=== PATIENT | female | born 1995 | race Hispanic/Latino ===

== ENCOUNTER 2018-04-30 13:49 | Emergency (ER) | payer OTHER ==
[~2018-04-30] VITALS: Ht 154.9 cm; Wt 68.2 kg
--- NOTE | 2018-04-30 15:30 | REP ---
CT Head without contrast HISTORY: Head injury COMPARISON: None There is no intraparenchymal hemorrhage, acute infarct, mass or midline shift. The ventricular system is normal in appearance. There is no extra cerebral collection. There is no fracture. The visualized sinuses are clear. IMPRESSION: There is no intracranial lesion. Electronically Signed by Tarsa Nath MD 04/30/2018 03:22 P
[2018-04-30 15:57] VITALS: BP 99/56
== END 2018-04-30 16:01 | disposition home or self-care (01) ==
LOC: M ED 13:49
DX: S09.90XA Unspecified injury of head, initial encounter (principal); W19.XXXA Unspecified fall, initial encounter; Y92.009 Unspecified place in unspecified non-institutional (private) residence as the place of occurrence of the external cause

== ENCOUNTER 2018-07-12 15:05 | Emergency (ER) | payer OTHER ==
[~2018-07-12] VITALS: Ht 154.9 cm; Wt 72.8 kg
[2018-07-12] MEDS ORDERED: MULTTAB20 PO (15:10)
[2018-07-12 17:57] LABS: BASO % 0.3 % (0.0-1.0); EOS % 0.4 % (0.0-3.0); HEMATOCRIT 39.1 % (36.0-47.0); HEMOGLOBIN 13.3 g/dl (12.0-15.5); LYMPH # 3.5 10^3/uL (1.5-6.5); LYMPH % 31.9 % (24.0-44.0); MEAN CORPUSCULAR HEMOGLOBIN 28.7 pg (27.0-33.0); MEAN CORPUSCULAR VOLUME 84.3 fl (80.0-96.0); MONO # 0.4 10^3/uL (0.0-0.8); MONO % 3.4 % (0.0-5.0); NEUTROPHILS % 63.5 % (36.0-66.0); PLATELET COUNT, AUTOMATED 268 10^3/uL (150-450); RED BLOOD COUNT 4.64 10^6/uL (4.00-5.40)
--- NOTE | 2018-07-12 19:55 | REPVR ---
EXAM: US , Transvaginal EXAM DATE/TIME: 07/12/2018 6:22 PM CLINICAL HISTORY: 23 years old, female; Signs and symptoms; Lmp or gestational age (in weeks): 7w 2d; Antepartum complications; Bleeding; ; Additional info: Vaginal bleeding TECHNIQUE: Imaging protocol: Real-time transvaginal obstetrical ultrasound of the maternal pelvis and a first trimester with image documentation. Transvaginal imaging was used for better evaluation of the fetus and adnexa. COMPARISON: No relevant prior studies available. FINDINGS: GESTATION: Gestation: There is a single intrauterine gestational sac. There is a yolk sac within inner diameter of 0.3 cm. Heart rate: Cardiac activity noted at a rate of 125 beats per minute. BIOMETRY: [place]-Rump length: There is a pole with a crown-rump length measurement of 0.9 cm for a menstrual age of 7 weeks and 0 days. MATERNAL: Cervix: Cervix was closed at the time of the examination. Right adnexa: The right ovary measures 2.8 x 2.5 x 2.2 cm and contains a corpus luteum cyst measuring 1.9 cm in greatest diameter. Blood flow demonstrated within the right ovary on color Doppler examination. Arterial and venous blood flow demonstrated in the right ovary on color Doppler examination. A trace amount of free fluid surrounds the right ovary. Left adnexa: An echogenic shadowing focus suggesting calcifications noted in the left ovary measuring 4 mm. The left ovary measures 1.4 x 2.1 x 1.7 cm. Arterial blood flow demonstrated in the left ovary on color Doppler examination. IMPRESSION: Single live intrauterine with an estimated menstrual age of 7 weeks and 0 days. Expected date of delivery 02/28/2019. Electronically signed by: Clary Blair On 07/12/2018 19:55:23 PM
[2018-07-12 20:28] VITALS: BP 108/63
[2018-07-12] MEDS ORDERED: KEFL500C17 PO (20:29)
[2018-07-12] MEDS ORDERED: CEPHALEXIN 500 MG CAP PO ONE (20:45)
== END 2018-07-12 20:52 | disposition home or self-care (01) ==
LOC: M ED 15:05
DX: O20.9 Hemorrhage in early pregnancy, unspecified (principal); O23.41 Unspecified infection of urinary tract in pregnancy, first trimester; O26.891 Other specified pregnancy related conditions, first trimester; M06.9 Rheumatoid arthritis, unspecified; Z3A.01 Less than 8 weeks gestation of pregnancy

== ENCOUNTER 2018-10-03 15:44 | Emergency (ER) | payer OTHER ==
[~2018-10-03] VITALS: Ht 154.9 cm; Wt 68.6 kg
[~2018-10-03 15:44] MED LIST: KEFL500C17 PO; MULTTAB20 PO
[2018-10-03 16:35] LABS: BASO % 0.3 % (0.0-1.0); EOS # 0.1 10^3/uL (0.0-0.50); EOS % 0.5 % (0.0-3.0); HEMATOCRIT 35.1 % (36.0-47.0); HEMOGLOBIN 12.1 g/dl (12.0-15.5); LYMPH # 2.9 10^3/uL (1.5-6.5); LYMPH % 27.3 % (24.0-44.0); MEAN CORPUSCULAR HEMOGLOBIN 28.4 pg (27.0-33.0); MEAN CORPUSCULAR HGB CONC 34.5 g/dl (32.0-36.5); MEAN CORPUSCULAR VOLUME 82.4 fl (80.0-96.0); MONO # 0.6 10^3/uL (0.0-0.8); MONO % 5.6 % (0.0-5.0); NEUTROPHILS # 6.9 10^3/uL (1.8-7.7); NEUTROPHILS % 65.9 % (36.0-66.0); PLATELET COUNT, AUTOMATED 222 10^3/uL (150-450); RED BLOOD COUNT 4.26 10^6/uL (4.00-5.40); WHITE BLOOD COUNT 10.5 10^3/uL (4.0-10.0)
[2018-10-03 16:59] LABS: BLOOD UREA NITROGEN 8 MG/DL (7-18); CALCIUM LEVEL 9.1 MG/DL (8.5-10.1); CARBON DIOXIDE LEVEL 25 MEQ/L (21-32); CHLORIDE LEVEL 106 MEQ/L (98-107); CREATININE FOR GFR 0.51 MG/DL (0.55-1.30); GLOMERULAR FILTRATION RATE > 60.0 (>60); GLUCOSE, FASTING 83 MG/DL (70-100); POTASSIUM SERUM 3.7 MEQ/L (3.5-5.1); SODIUM LEVEL 139 MEQ/L (136-145)
--- NOTE | 2018-10-03 19:29 | REPVR ---
EXAM: US After First Trimester, Transabdominal EXAM DATE/TIME: 10/03/2018 6:04 PM CLINICAL HISTORY: 23 years old, female; complicated by abdominal or pelvic pain; Lower; Second trimester; Gestational age or lmp: 19w1d; ; Additional info: Low abdominal pain, 19wks TECHNIQUE: Imaging protocol: Real-time transabdominal obstetrical ultrasound of the maternal pelvis and a second or third trimester with image documentation. COMPARISON: Correlation with report from prior ultrasound 07/12/2018. FINDINGS: GESTATION: Gestation: There is a single intrauterine gestation. Heart rate: heart rate is 155 bpm. Presentation: presentation is cephalic. Placenta: The placenta is anterior. Amniotic fluid: The amniotic fluid appears subjectively adequate. Head, face, and neck: Facial profile views are suboptimal. Heart: A four-chamber heart was visualized. The right ventricular outflow tract view is suboptimal. The left ventricular outflow tract was visualized. Abdomen: The stomach was visualized. The kidneys were suboptimally visualized. The bladder was visualized. Umbilical cord and insertion: A three-vessel cord was seen. The cord insertion was visualized. Spine: The spine was suboptimally visualized. Extremities: The extremities were visualized. BIOMETRY: Estimated gestational age: The ultrasound gestational age is 18 weeks 2 days. Estimated due date: The MARIO is 03/04/2019. The MARIO according to the prior study was 02/28/2019. Interval growth is concordant. Estimated weight: The estimated weight is 227 g. 13th percentile. Biparietal diameter: BPD is 4.23 cm corresponding to gestational age of 18 weeks 6 days. 41st percentile. Head circumference: HC is 15.59 cm corresponding to a gestational age of 18 weeks 4 days. 31st percentile. Abdominal circumference: AC is 12.32 cm corresponding to a gestational age of 18 weeks 0 days. 18th percentile. Femur length: FL is 2.71 cm corresponding to a gestational age of 18 weeks 2 days. 28th percentile. MATERNAL: Uterus: The appearance of an echogenic linear band within the amniotic fluid between the placenta and the uterine wall on the left, could represent an adhesion/scar or amniotic band. Followup is recommended. No discrete band identified between the fetus and the uterine wall. Cervix: The cervix is long and closed measuring 3.6 cm. IMPRESSION: 1. The appearance of an echogenic linear band within the amniotic fluid between the placenta and the uterine wall on the left, could represent an adhesion/scar or amniotic band. Followup is recommended. 2. Single live intrauterine gestation, as detailed above. Electronically signed by: Radha Sotomayor On 10/03/2018 19:29:14 PM
[2018-10-03] MEDS ORDERED: MACR100C43 PO (20:11)
[2018-10-03 20:20] VITALS: BP 105/63
--- NOTE | 2018-10-08 21:11 | ED PDOC ---
Post-Departure Follow-Up ft drum ob and ft drum fp faxedformal report of ob us for fu Obed Murillo MD Oct 08, 2018 21:11
== END 2018-10-03 20:22 | disposition home or self-care (01) ==
LOC: M ED 15:44
DX: O23.42 Unspecified infection of urinary tract in pregnancy, second trimester (principal); O26.892 Other specified pregnancy related conditions, second trimester; Z87.448 Personal history of other diseases of urinary system; Z3A.19 19 weeks gestation of pregnancy; Z79.899 Other long term (current) drug therapy

== ENCOUNTER 2018-12-29 21:10 | Outpatient (CLI) | payer OTHER ==
[~2018-12-29] VITALS: Ht 154.9 cm; Wt 74.3 kg
[~2018-12-29 21:10] MED LIST changes: +MACR100C43 PO
[2018-12-29] MEDS ORDERED: MAPA500T2 PO (21:43)
[2018-12-29 21:47] VITALS: BP 119/67
[2018-12-29 22:33] LABS: APPEARANCE, URINE CLEAR (CLEAR); BACTERIA, URINE AUTO 1+ (NEGATIVE); BILIRUBIN, URINE AUTO NEGATIVE (NEGATIVE); BLOOD, URINE BLOOD NEGATIVE (NEGATIVE); COLOR, URINE YELLOW (YELLOW); GLUCOSE, URINE (UA) AUTO NEGATIVE (NEGATIVE); KETONE, URINE AUTO NEGATIVE (NEGATIVE); LEUKOCYTE ESTERASE, URINE AUTO 3+ (NEGATIVE); MUCUS, URINE SMALL (NEGATIVE); NITRITE, URINE AUTO NEGATIVE (NEGATIVE); PROTEIN, URINE AUTO NEGATIVE (NEGATIVE); RBC, URINE AUTO 13 /HPF (0-3); SPECIFIC GRAVITY URINE AUTO 1.011 (1.002-1.035); SQUAMOUS EPITHELIAL CELL UR AU 4 /HPF (0-6); UROBILINOGEN, URINE AUTO 0.2 mg/dL (0.0-2.0); WBC, URINE AUTO 8 /HPF (0-3)
[2018-12-29] MEDS ORDERED: ACETAMINOPHEN 500 MG TAB PO ONE (22:45)
[2018-12-29 23:12] LABS: BASO % 0.3 % (0.0-1.0); EOS # 0.1 10^3/uL (0.0-0.5); EOS % 0.7 % (0.0-3.0); HEMATOCRIT 35.7 % (36.0-47.0); LYMPH % 29.8 % (24.0-44.0); MEAN CORPUSCULAR HEMOGLOBIN 29.1 pg (27.0-33.0); MEAN CORPUSCULAR HGB CONC 33.6 g/dl (32.0-36.5); MEAN CORPUSCULAR VOLUME 86.7 fl (80.0-96.0); MONO # 0.7 10^3/uL (0.0-0.8); MONO % 7.1 % (0.0-5.0); NEUTROPHILS # 6.2 10^3/uL (1.5-8.5); NEUTROPHILS % 61.6 % (36.0-66.0); PLATELET COUNT, AUTOMATED 194 10^3/uL (150-450); RED BLOOD COUNT 4.12 10^6/uL (4.00-5.40); WHITE BLOOD COUNT 10.1 10^3/uL (4.0-10.0)
[2018-12-29 23:50] LABS: ALBUMIN 2.8 GM/DL (3.2-5.2); ALT/SGPT 20 U/L (12-78); BILIRUBIN,TOTAL 0.2 MG/DL (0.2-1.0); BLOOD UREA NITROGEN 8 MG/DL (7-18); CALCIUM LEVEL 8.7 MG/DL (8.5-10.1); CARBON DIOXIDE LEVEL 25 MEQ/L (21-32); CHLORIDE LEVEL 107 MEQ/L (98-107); GLOMERULAR FILTRATION RATE > 60.0 (>60); GLUCOSE, FASTING 77 MG/DL (70-100); LIPASE 115 U/L (73-393); PHOSPHORUS LEVEL 4.8 MG/DL (2.5-4.9); POTASSIUM SERUM 3.7 MEQ/L (3.5-5.1); SODIUM LEVEL 140 MEQ/L (136-145); TOTAL PROTEIN 6.2 GM/DL (6.4-8.2)
--- NOTE | 2018-12-30 00:03 | IPNPDOC ---
"Text Note Date of Service The patient was seen on 12/29/18. NOTE OB Considerations: BMI 30 VZV non immune 23y/o G1 @ 31+4 wks by LMP c/w 1st trimester US (MARIO [id number]) presents to triage for complaint of pain. Patient reports that, around noon today she had acute onset of 6/10 sharp stabbing pain while doing housework. She reports that the pain is periumbilical and radiates around her right side and back, also radiating downward towards her pelvis. She reports that she has decreased appetite, but no nausea/vomiting. She denies fevers/chills/CP/SOB/abnormal discharge. She does note some pain with urination. She denies contractions, LOF, vaginal bleeding. Pain was not improved with 325mg of Tylenol. Patient reports pain has been constant since its onset and is not intermittent nature. Patient does admit to constipation. She reports one hard bowel movement today. VS: Reviewed. Afebrile, normotensive, non tachycardic. Gen: Alert and oriented, no acute distress Resp: CTAB, no crackles, wheezes or rhonchi. Non labored breathing. CV: RRR, no murmurs, rubs or gallops Abd: +BS, soft, non distended, gravid. Mild tenderness to palpation along umbilicus and entire right half of abdomen. Patient reporting tenderness with palpation along right paravertebral muscles on the right half of lower back. Ext: No edema, erythema or calf tenderness SSE: Closed, thick cervical os. Thick white curd-like discharge present. Microscopy: Pseudohyphae and budding yeast present. No clue cells or trichomonas. NST: 140, mod leo, +accels, no decels TCO: quiet Labs: 10.1>12.0/35.7<194 No left shift 140/3.7|107/25|8/0.50 AST 12 ALT 20 Lipase 115 UA: 3+ leuk esterase, 13WBC A/p: 23y/o G1 @ 31+4 wks by LMP c/w 1T US (MARIO [id number]) presents to triage with abdominal pain radiating towards pelvis and around left side which began during housework today. -UA concerning for possible UTI, given pain with urination will initiate Macrobid 100mg BID x 7 days and followup culture -Yeast infection: will prescribe Clotrimazole cream -Constipation: Recommend over the counter Miralax -Suspect abdominal pain secondary to MSK pain. Throughout the triage course, patient began to ask for jon crackers and reported improved appetite. Given afebrile, no elevations in WBC and appetite, do not suspect appendicitis. Low suspicion for kidney stone given constant nature of pain. Do not suspect pyelonephritis given afebrile, pain with paraspinal palpation. -Patient was discharged in stable condition with strong return precautions should her symptoms worsen or she develop a fever. labor and return precautions given. Lili Crooks MD VS,Blake, I+O VS, Blake, I+O Laboratory Tests 12/29/18 23:06 Vital Signs Date Time Temp Pulse Resp B/P (MAP) Pulse Ox O2 Delivery O2 Flow Rate FiO2 12/29/18 21:47 98.0 80 18 119/67 (84) Radha Crooks MD Dec 30, 2018 00:03"
--- NOTE | 2018-12-30 00:21 | IPNPDOC ---
"Text Note Date of Service The patient was seen on 12/30/18. NOTE To whom it may concern: Freda Méndez was evaluated on Labor and Delivery on 29Dec2018 for abdominal pain. I recommend that she stay home from work on 30Dec2018 for r ecovery. Respectfully, Radha Crooks MD CPT||[facility] [employer] [facility] VS,Blake, I+O VS, Blake, I+O Laboratory Tests 12/29/18 23:06 Vital Signs Date Time Temp Pulse Resp B/P (MAP) Pulse Ox O2 Delivery O2 Flow Rate FiO2 12/29/18 21:47 98.0 80 18 119/67 (84) Radha Crooks MD Dec 30, 2018 00:21"
== END 2018-12-30 00:35 | disposition home or self-care (01) ==
LOC: M LDO 21:10
PROVIDERS: ATTEND Obstetrics & Gynecology
DX: O26.893 Other specified pregnancy related conditions, third trimester (principal); R10.30 Lower abdominal pain, unspecified; O23.599 Infection of other part of genital tract in pregnancy, unspecified trimester; B37.3 Candidiasis of vulva and vagina; Z3A.31 31 weeks gestation of pregnancy
CPT/HCPCS: 36415; 59025; 80053; 81001; 83690; 83735; 84100; 85025; 87086; G0378; G0463

== ENCOUNTER 2019-01-30 20:11 | Outpatient (CLI) | payer OTHER ==
[~2019-01-30] VITALS: Ht 152.4 cm; Wt 76.5 kg
[~2019-01-30 20:11] MED LIST changes: +MAPA500T2 PO
[2019-01-30 20:30] VITALS: BP 113/59
--- NOTE | 2019-01-30 21:05 | IPNPDOC ---
Text Note Date of Service The patient was seen on 01/30/19. NOTE 23 yo at 36+1 weeks gestation presented to L&D with the complaint of constant pelvic pressure and contractions that have been worsening over the last several hours. She denies any vaginal bleeding or leakage of fluid. She endorses excellent movement. is uncomplicated. Chaperoned by L&D RN Vitals - VSS, normotensive, non tachycardic, afebrile General - AAXO3, laying in bed, NAD Abdomen - Gravid uterus, no fundal tenderness Cervix - closed/thick/high, posterior FHR tracing - Cat I with moderate variability, +accels, no decels. No ctx on toco. Freda is not in labor. status is reassuring. Discharged home with return precautions. Delilah Harmon DO VS,Blake, I+O VS, Blake, I+O Vital Signs Date Time Temp Pulse Resp B/P (MAP) Pulse Ox O2 Delivery O2 Flow Rate FiO2 01/30/19 20:30 97.0 82 113/59 (77) DELILAH HARMON DO Jan 30, 2019 21:05
== END 2019-01-30 21:00 | disposition home or self-care (01) ==
LOC: M LDO 20:11
PROVIDERS: ATTEND Obstetrics & Gynecology
DX: O26.893 Other specified pregnancy related conditions, third trimester (principal); R10.30 Lower abdominal pain, unspecified; O47.03 False labor before 37 completed weeks of gestation, third trimester; Z3A.36 36 weeks gestation of pregnancy
CPT/HCPCS: 59025; G0378; G0463

== ENCOUNTER 2019-02-26 02:16 | Outpatient (CLI) | payer OTHER ==
[~2019-02-26] VITALS: Ht 152.4 cm; Wt 80.4 kg
--- NOTE | 2019-02-26 03:12 | IPNPDOC ---
Text Note Date of Service The patient was seen on 02/26/19. NOTE patient is a 23 yo G1 @ 40wks gestation presents with regular painful contractions x 4hrs. denies LOF/VB. +FM vitals: normal nad abd: cephalic by josé miguel fht: 150/mod leo/pos accel/no decel toco: ctx q 2mins ce: closed/high (per nursing check) a/p patient not in labor. discussed s/s to return. f/u with regularly scheduled appointments. AURELIA BAKER DO Feb 26, 2019 03:12
== END 2019-02-26 03:30 | disposition home or self-care (01) ==
LOC: M LDO 02:16
PROVIDERS: ATTEND Obstetrics & Gynecology
DX: O47.1 False labor at or after 37 completed weeks of gestation (principal); Z3A.40 40 weeks gestation of pregnancy
CPT/HCPCS: 59025; 81001; 87086; G0378; G0463

== ENCOUNTER 2019-02-28 07:02 | Outpatient (CLI) | payer OTHER ==
[~2019-02-28] VITALS: Ht 154.9 cm; Wt 78.9 kg
[2019-02-28 07:20] VITALS: BP 127/72
--- NOTE | 2019-02-28 10:58 | IPNPDOC ---
Text Note Date of Service The patient was seen on 02/28/19. NOTE Triage Note Freda is a 23yo with SIUP at 40w2d presenting with CC of painful regular ctx that started last night. She didn't sleep much secondary to ctx. No vaginal bleeding. No gush of fluid. Feels good movement. Vitals wnl, afebrile General: WDWN, resting in bed, breathing with ctx Abdomen: soft, gravid, NTTP, ctx palpate mild Cat I FHRT with bl 130's, +accels, -decels, mod leo [place]: ctx q2-4min but then over time with hydration spaced out to q9-15min SCE (RN as demi chef): 3/80/-2, unchanged over approx 3hr. Cephalic by SCE. Assessment: Freda is a 23yo with SIUP at 40w2d with NO e/o active labor based on unchanged cervical exam and spacing of ctx with hydration. Vitals wnl, benign exam. SCE 3/80/-2. Reassuring status. Normotensive. Plan: -pt had OB appt at 1500 today, she can call to cancel that appt and needs to be seen at 41wk if no labor prior (though I feel she will return in labor in the next day or 2). -note given for her to have quarters 48hr so he can remain with her -ok to take a dose of oral benadryl for sleep as desired -encouraged warm bath/shower -discussed return precautions at length -safe for discharge home MD JASVIR Luis Fishbone, I+O Blake TAY I+O Vital Signs Date Time Temp Pulse Resp B/P (MAP) Pulse Ox O2 Delivery O2 Flow Rate FiO2 02/28/19 07:20 85 20 127/72 (90) Room Air Amy Gage MD Feb 28, 2019 10:58
== END 2019-02-28 10:48 | disposition home or self-care (01) ==
LOC: M LDO 07:02
PROVIDERS: ATTEND Obstetrics & Gynecology
DX: O47.1 False labor at or after 37 completed weeks of gestation (principal); Z3A.40 40 weeks gestation of pregnancy
CPT/HCPCS: 59025; G0378; G0463

== ENCOUNTER 2019-02-28 18:47 | Inpatient (IN) | payer OTHER ==
[~2019-02-28] VITALS: Ht 154.9 cm; Wt 82.0 kg
[2019-02-28 18:58] VITALS: BP 112/67
[2019-02-28] MEDS ORDERED: LR 1,000 ML IV SCH (19:56)
[2019-02-28] MEDS ORDERED: LACTATED RINGER'S 1000 ML IV STA (19:56)
[2019-02-28] MEDS ORDERED: BUTORPHANOL 2 MG/ML INJ (J0595) IV PRN (20:00)
--- NOTE | 2019-02-28 20:13 | HPEPDOC ---
Obstetrical History & Physical General Date of Admission Feb 28, 2019 at 19:46 History of Present Illness Fread is a 23yo with SIUP at 40w2d by lmp c/w early u/s presenting for the 2nd time today for painful regular ctx. This morning she was 3/80/-2 and unchanged over 3hr so sent home. She presents again stating ctx are more painful and she has not been able to sleep all day or last night and she is tired and miserable. Feels movement. No vaginal bleeding. No gush of fluid. No fevers/chills. Chief Complaint: Contractions, term Information Provided By: Patient Care Care: Good Care Dating Final EDC: Feb 26, 2019 Final EDC by: LMP, 1st trimester (US) Antepartum Course Diagnos(e)s Starting BMI 30 (obesity), varicella non-immune Height (inches): 61 Pre- weight (lbs.): 155 Admission Weight (lbs.): 173 Change in Weight (lbs.): 18 Past Medical History Past Obstetrical History : Past Obstetrical History: [employer] History: No pertinent history Past Medical History Medical History Obesity BMI 30 Surgical History: Denies/None Family History Significant Family History: No pertinent family hx Social History Marital Status: Family situation: Spouse/partner home Psychosocial History: No pertinent psych hx * Smoker: non-smoker Alcohol: Denies Drugs: denies Imunizations Tdap status: current Influenza Status: current Allergies Coded Allergies: No Known Drug Allergies (Verified Allergy, Unknown, 07/12/18) Medications Scheduled No122/Iron/Folic Acid ( Multi Tablet) 1 Each Tablet, 1 TAB PO DAILY Miscellaneous Medications Acetaminophen (Mapap) 500 Mg Tablet, 325 MG PO Physical Examination Physical Examination GENERAL: Alert and oriented times three. ABDOMEN: Gravid and non-tender to touch. FETUS: Is vertex (VTX) by sterile vaginal examination (SVE) EXTREMITIES: No edema of BLE Vital Signs/I&O Vital Signs Date Time Temp Pulse Resp B/P (MAP) Pulse Ox O2 Delivery O2 Flow Rate FiO2 02/28/19 18:58 97.2 75 20 112/67 (82) Room Air Laboratory Data 24H LABS Laboratory Tests 2 02/28/19 19:51: Serology Scanned Report Hepatitis B Testing CBC/BMP 28wk H/H 13/38.9 Pertinent Laboratoy Data Blood Type: O+ RBC Antibody Screen: Negative HIV: Negative Hepatitis B: Negative Hepatitis C: Unknown Rapid Plasma Reagin: Nonreactive Rubella: Immune Varicella: Nonreactive Chlamydia/Gonorrhea: Negative Group B Streptococcus: Negative Glucose Tolerance Test: 99 Anatomy Ultrasound Ultrasound Date: Aug 22, 2018 Placenta Location: Anterior Normal Anatomy: Yes Placenta Previa: No Steroid Therapy Steroid Therapy: No Vaginal Examination Dilation: 5 cm Effacement: 80% Station: -2 Cervical Consistency: Soft Cervical Position: Middle Presentation: Cephalic presentation Assessment Heart Rate (FHR): 140 Variability: Moderate Accelerations: Positive Decelerations: None Tocometer Contractions: Yes Frequency: regular, every 3-7 min. Duration: greater than 60 seconds Strength: palpated as moderate Assessment/Plan Assessment Freda is a 23yo with SIUP at 40w2d by lmp c/w early u/s in labor with SCE 5/80/-2 though ctx currently q5-7min. Cat I FHRT. Vitals wnl. Cephalic by SCE. GBS negative. PMhx/ course significant for Obesity (starting BMI 30) and varicella non-immune Plan Admit and orient. Freezer Operator and consent. Diet: clear liquids Group B Streptococcus (GBS) negative Labs and intravenous (IV) per unit protocol Lactated Ringers (LR): Bolus 500 mL, then at 125 mL/hr Anticipate normal spontaneous delivery () Candidate for epidural as desired in active labor, stadol/phenergan in latent labor MD Merari Luis Katrina D MD Feb 28, 2019 20:13
[2019-02-28] MEDS ORDERED: PROMETHAZINE INJ 25 MG/ML VIAL (J2550) IV ONE (20:15)
[2019-02-28 20:25] LABS: HEMATOCRIT 41.7 % (36.0-47.0); HEMOGLOBIN 13.9 g/dl (12.0-15.5); MEAN CORPUSCULAR HEMOGLOBIN 28.5 pg (27.0-33.0); MEAN CORPUSCULAR HGB CONC 33.3 g/dl (32.0-36.5); MEAN CORPUSCULAR VOLUME 85.6 fl (80.0-96.0); PLATELET COUNT, AUTOMATED 220 10^3/uL (150-450); RED BLOOD COUNT 4.87 10^6/uL (4.00-5.40); WHITE BLOOD COUNT 18.8 10^3/uL (4.0-10.0)
[2019-02-28 20:43] VITALS: BP 106/55
[2019-02-28 21:43] VITALS: BP 106/58
[2019-02-28 22:43] VITALS: BP 104/60
[2019-02-28 23:43] VITALS: BP 105/61
[2019-03-01] VITALS (10 sets, daily range): BP systolic 108–123; BP diastolic 54–74
[2019-03-01] MEDS ORDERED: OXYTOCIN 30 UNITS IN 0.9% NaCl 500ML IV BAG (J2590) As Ordered ONE (03:09)
[2019-03-01] MEDS ORDERED: OXYTOCIN DRIP 30 UNITS in IV 1 EA IV SCH (03:58)
[2019-03-01] MEDS ORDERED: ACETAMINOPHEN TAB 650MG DOSE (2X325MG) PO PRN (04:00)
[2019-03-01] MEDS ORDERED: RHOGAM 300 MCG (1500 IU) INJ (J2790) IM SCH (04:00)
[2019-03-01] MEDS ORDERED: DIBUCAINE 1% OINTMENT 30GM TOP PRN (04:00)
[2019-03-01] MEDS ORDERED: MEASLES,MUMPS,RUBELLA VACCINE INJ (MMR-II) (90707) SC SCH (04:00)
[2019-03-01] MEDS ORDERED: LIDOCAINE 1% MDV 20ML VIAL INFIL ONE (04:00)
[2019-03-01] MEDS ORDERED: DOCUSATE SODIUM 100 MG CAP PO PRN (04:00)
--- NOTE | 2019-03-01 04:09 | DNPDOC ---
[facility] Delivery Note Delivery Note DATE OF DELIVERY: 03/01/2019 PREDELIVERY DIAGNOSIS: 40w3d gestation and labor. POST DELIVERY DIAGNOSIS: Delivered. PROCEDURE: Spontaneous vaginal delivery ASSISTANT AT SURGERY: Dr. Amy Gage MD ANESTHESIA: 1% lidocaine for repair ESTIMATED BLOOD LOSS: 200 mL. FINDINGS: 6 pound 5 ounce (2870g) female , Score 8/9 DELIVERY SUMMARY: Freda is a 23yo [id number] s/p uncomplicated at 40w3d after presenting in active labor, delivering at 0320 on 03/01/2019. She presented at 5cm, had SROM with clear fluid noted at the time, and progressed withOUT an epidural. She reached C/C/+2 and began pushing. 's head delivered OA, restituted FRED. Left anterior shoulder delivered followed by posterior shoulder and corpus. Meconium stained fluid was noted at that time. was vigorous, had spontaneous cry, placed on maternal chest, apgars 8/9, nose and mouth suctioned with bulb suction. Cord was clamped x2 and cut by FOB after approx 1-2min. went to warmer for further suctioning. With traction on the cord and uterine massage, placenta delivered spontaneously and intact with 3 vessel centrally inserted cord. More uterine massage was performed with fundus then firm at u-2cm. Inspection of perineum and vagina revealed a superficial right labial laceration and small 2mll which were reapproximated in routine fashion using 4-0 and 3-0 vicryl after injecting with 1% lidocaine with complete hemostasis noted and excellent reapproximation. All counts correct x2. Mom and infant were doing well when I left the room. MD Merari Luis Katrina D MD Mar 01, 2019 04:09
[2019-03-01] MEDS: ACETAMINOPHEN 500 MG TAB PO PRN (05:06)
[2019-03-01] MEDS: PRENATAL VITAMINS CHEWABLE TABLET PO SCH (09:52)
[2019-03-01] MEDS: IBUPROFEN 600 MG TAB PO PRN ×2 (12:06→18:39)
[2019-03-02 06:00] VITALS: BP 102/59
--- NOTE | 2019-03-02 07:52 | IPNPDOC ---
Progress Note Date of Service: Mar 02, 2019 Progress Note Freda is a 23 yo G1 now P1 who underwent an uncomplicated on 01Mar2019 after being admitted for active labor. No acute events yesterday. Freda is sleeping soundly in her room. I did not wake her up. Vitals - VSS, afebrile, normotensive, non tachycardic General - Sleeping soundly in bed. I did not awaken her. Voiding on own. No new labs. Freda appears to be doing well. Continue routine care today. Anticipate discharge home tomorrow if she continues to do well. Delilah Harmon DO VS, I&O, 24H, Fishbone Vital Signs/I&O Vital Signs Date Time Temp Pulse Resp B/P (MAP) Pulse Ox O2 Delivery O2 Flow Rate FiO2 03/02/19 06:00 97.7 98 16 102/59 (73) 02/28/19 20:38 Room Air DELILAH HARMON DO Mar 02, 2019 07:52
[2019-03-02] MEDS: IBUPROFEN 800 MG TAB PO PRN ×2 (09:13→16:26)
[2019-03-02] MEDS: PRENATAL VITAMINS CHEWABLE TABLET PO SCH (09:18)
[2019-03-02] MEDS: ACETAMINOPHEN 500 MG TAB PO PRN ×2 (15:37→21:36)
[2019-03-02 18:15] VITALS: BP 104/58
[2019-03-03 06:12] VITALS: BP 92/62
--- NOTE | 2019-03-03 08:23 | IPNPDOC ---
Progress Note Date of Service: Mar 03, 2019 Day#: 2 Progress Note SUBJECT: Ms. Ever Funk is a 23 1 now Para 1001 status post uncomplicated spontaneous vaginal delivery at 40+3 weeks' at approximately 0320 hours on 03/01/2019 of a female 6 pounds 5 ounces (2870 grams) with right labial laceration and small 2nd MLL, doing well day #2. She has been ambulating, voiding spontaneously without issue and tolerating regular diet. Breast feeding without issue. Reports lochia is WNL. OBJECTIVE: VITAL SIGNS: Within normal limits, afebrile. Alert and oriented times three. Non-labored breathing Abdomen: Fundus firm at U-1. Soft, NTTP. Lochia minimal. ASSESSMENT: PP Day #2, normal involution, stable and overall doing well; exclusively without issue. PLAN: 1. Discharge to home today. 2. Tylenol and Motrin for pain. 3. Encourage breast feeding and ambulation. 4. Routine PP visit in 6 weeks in clinic. 5. Discussed return precautions at length. VS, I&O, 24H, Fishbone Vital Signs/I&O Vital Signs Date Time Temp Pulse Resp B/P (MAP) Pulse Ox O2 Delivery O2 Flow Rate FiO2 03/03/19 06:12 98.4 77 19 92/62 (72) 02/28/19 20:38 Room Air KRISTA WILLINGHAM CNM Mar 03, 2019 08:23
[2019-03-03] MEDS ORDERED: IBUP-1022 PO (08:29)
[2019-03-03] MEDS: PRENATAL VITAMINS CHEWABLE TABLET PO SCH (08:44)
== END 2019-03-03 12:00 | disposition home or self-care (01) | DRG 807 ==
LOC: M LDO 18:47 → M LDI 19:46 → M OBS 03-01 06:05
PROVIDERS: ADMIT Obstetrics & Gynecology; ATTEND Obstetrics & Gynecology
PROC: 10E0XZZ Delivery of Products of Conception, External Approach (ICD-10-PCS; principal; 2019-03-01)
PROC: 0HQ9XZZ Repair Perineum Skin, External Approach (ICD-10-PCS; 2019-03-01)
DX: O48.0 Post-term pregnancy (principal); Z37.0 Single live birth; Z3A.40 40 weeks gestation of pregnancy; E66.9 Obesity, unspecified; Z68.30 Body mass index [BMI] 30.0-30.9, adult; O70.0 First degree perineal laceration during delivery; O99.214 Obesity complicating childbirth

== ENCOUNTER → 2020-03-25 | Outpatient (CLI) | payer OTHER ==
[~2020-03-25] MED LIST changes: +IBUP-1022 PO
== END ==
LOC: M LABSMTC 14:32
PROVIDERS: ATTEND Family Medicine
DX: Z20.822 Contact with and (suspected) exposure to COVID-19 (principal)